=== PATIENT | male | born 1995 | race Two or more races ===

== ENCOUNTER 2021-04-11 20:33 | Emergency (ER) | payer OTHER ==
[~2021-04-11] VITALS: Ht 175.3 cm; Wt 68.0 kg
[2021-04-11] MEDS ORDERED: CIPRO500 MG PO (23:34)
== END 2021-04-11 23:38 | disposition home or self-care (01) ==
LOC: ER 20:33
DX: R11.11 Vomiting without nausea (principal); R50.9 Fever, unspecified